=== PATIENT | male | born 1995 | race Caucasian/White ===

== ENCOUNTER 2022-05-23 14:01 | Inpatient (IN) | payer BC ==
[~2022-05-23] VITALS: Ht 177.8 cm; Wt 108.9 kg
[2022-05-23 14:15] VITALS: BP_SYST 126
[2022-05-23] MEDS ORDERED: KETOROLAC TROMETHAMINE 30 MG VIAL IM ONE (15:30)
[2022-05-23 16:08] LABS: BASOPHILS % (AUTO) 0.3 % (0.0-2.0); EOSINOPHILS # (AUTO) 0.1 K/uL (0.0-0.4); EOSINOPHILS % (AUTO) 0.5 % (0.0-4.0); HEMOGLOBIN 14.3 g/dL (14.0-18.0); LYMPHOCYTES # (AUTO) 2.4 K/uL (1.0-5.5); LYMPHOCYTES % (AUTO) 21.3 % (20.5-51.5); MEAN CORPUSCULAR HEMOGLOBIN 29 pg (27-31); MEAN CORPUSCULAR HGB CONC 34 % (32-36); MEAN CORPUSCULAR VOLUME 85 fL (79.0-98.0); MONOCYTES # (AUTO) 0.7 K/uL (0.0-1.0); NEUTROPHILS % (AUTO) 71.9 % (40.0-70.0); PLATELET COUNT (AUTO) 263 K/uL (130-430); RED BLOOD CELL COUNT(AUTO) 4.95 MIL/uL (4.2-6.2); RED CELL DISTRIBUTION WIDTH 13.3 % (9.0-15.0); WHITE BLOOD COUNT (AUTO) 11.2 K/uL (4.8-10.8)
[2022-05-23] MEDS ORDERED: PIPERACILLIN/TAZO 3.375 GM in NS 50 ML IV ONE (16:15)
[2022-05-23] MEDS ORDERED: NACL 0.9% 1,000 ML IV ONE (16:15)
[2022-05-23 16:29] LABS: PROTHROMBIN TIME 9.9 SECS (9.5-12.5)
[2022-05-23 16:50] LABS: CREATININE 0.87 mg/dL (0.55-1.30)
[2022-05-23 16:54] LABS: TOTAL BILIRUBIN 0.3 mg/dL (0.0-1.0)
[2022-05-23 16:55] LABS: ALBUMIN 3.8 g/dL (3.4-4.8)
[2022-05-23] MEDS ORDERED: ONDANSETRON HCL 4 MG/2 ML VIAL IVP PRN (17:00)
[2022-05-23] MEDS ORDERED: HYDROcodone/ACETAMIN 5-325 MG TAB (NORCO/ VICODIN) PO PRN (17:00)
[2022-05-23] MEDS ORDERED: PIPERACILLIN/TAZOBACTAM 3.375 GM/VIAL (ZOSYN) IV ONE (17:03)
[2022-05-23] MEDS ORDERED: ACETAMINOPHEN 325 MG TABLET PO PRN (18:45)
[2022-05-23] MEDS ORDERED: ceFAZolin SODIUM 1 GM VIAL ONE (22:39)
[2022-05-23] MEDS: ceFAZolin SODIUM 1 GM in D5W 50 ML IV SCH (22:43)
[2022-05-23] MEDS: NORMAL SALINE 5 ML DISP.SYRIN IVF SCH (22:43)
[2022-05-24] VITALS: BP_SYST 128
[2022-05-24 04:00] VITALS: BP_SYST 140
[2022-05-24] MEDS: NORMAL SALINE 5 ML DISP.SYRIN IVF SCH (05:21)
[2022-05-24] MEDS: ceFAZolin SODIUM 1 GM in D5W 50 ML IV SCH (05:21)
[2022-05-24] MEDS ORDERED: CEFAZOLIN 1 GM IVPB PREMIX 50 ML IV ONE (05:22)
[2022-05-24 10:17] VITALS: BP_SYST 136
[2022-05-24 10:27] VITALS: BP_SYST 136
[2022-05-24 11:05] VITALS: BP_SYST 136
[2022-05-24 19:04] VITALS: BP_SYST 136
== END 2022-05-24 11:30 | disposition home or self-care (01) | DRG 394 ==
LOC: SED 14:01 → SDS 17:13 → SMU 18:12
PROVIDERS: ADMIT Surgery; ATTEND Surgery
DX: K42.9 Umbilical hernia without obstruction or gangrene (principal); L02.216 Cutaneous abscess of umbilicus; L03.316 Cellulitis of umbilicus; Z20.822 Contact with and (suspected) exposure to COVID-19; Z82.49 Family history of ischemic heart disease and other diseases of the circulatory system
CPT/HCPCS: 36415; 76376; 80053; 83605; 83690; 85025; 85610-TC; 85730-TC; 87040; 96365; 96375; 99285; J0690; J1885; J2543; J7030; J7060